=== PATIENT | male | born 1970 | race Caucasian/White ===

== ENCOUNTER → 2020-07-22 10:09 | Outpatient (CLI) | payer OTHER, SELFPAY ==
--- NOTE | ~2020-07-22 | MR_ITS ---
EXAMINATION: MR knee RT wo con DATE: 07/22/2020 10:57 INDICATION: Internal derangement of right knee. Right knee pain. TECHNIQUE: Magnetic resonance imaging (MRI) of the right knee was performed without intravenous contr ast. Sequences included axial PD-weighted FS FSE, coronal PD-weighted FSE and PD-weighted FS FSE, sag ittal PD-weighted FSE, and sagittal T2-weighted FS FSE. COMPARISON: None. FINDINGS: Medial compartment: There is a bucket-handle tear of medial meniscus displaced into the intercondylar notch. There is car tilage surface irregularity of tibial condyle and femoral condyle. Lateral compartment: Lateral meniscus is normal. Lateral compartment cartilage is normal. Patellofemoral compartment: There is deep partial thickness cartilage loss of patellar medial facet with mild subchondral edema-l tian marrow signal intensity. There is shallow partial-thickness cartilage loss of patellar lateral fa cet. There is cartilage surface irregularity of central trochlea. Ligaments and tendons: There is a complete tear of anterior cruciate ligament. Posterior cruciate ligament is intact. There is edema around medial collateral ligament, consistent with mild sprain. There is a mild sprain of fi bular collateral ligament characterized by thickening and increased signal intensity proximally. Ther e is mild patellar tendinopathy. Fluid: There is a large knee joint effusion. There is trace fluid in a Haddad's cyst. There is mild prepatell ar and superficial infrapatellar bursitis. Osseous/other: There is an impaction fracture of lateral tibial condyle posteriorly with low signal fracture line an d bone marrow edema. There is bone marrow edema-like marrow signal intensity in head of fibula, consi stent with contusion. There is a contusion of posterior aspect of medial tibial condyle with bone mar row edema-like marrow signal intensity. IMPRESSION: 1. Displaced bucket-handle tear of medial meniscus. 2. Complete tear of anterior cruciate ligament. 3. Moderate chondrosis of patellofemoral compartment and mild chondrosis of medial compartment. 4. Contusions of posterior tibia and fibular head with small impaction fracture of lateral tibial con dyle posteriorly. 5. Large knee joint effusion. Reviewed, dictated and finalized at location A. IMPRESSION: 1. Displaced bucket-handle tear of medial meniscus. 2. Complete tear of anterior cruciate ligament. 3. Moderate chondrosis of patellofemoral compartment and mild chondrosis of med ial compartment. 4. Contusions of posterior tibia and fibular head with small impaction fracture of lateral tibial condyle posteriorly. 5. Large knee joint effusion.
== END ==
DX: M23.8X1 Other internal derangements of right knee (principal); S83.211A Bucket-handle tear of medial meniscus, current injury, right knee, initial encounter; S83.511A Sprain of anterior cruciate ligament of right knee, initial encounter; M22.2X1 Patellofemoral disorders, right knee; S82.121A Displaced fracture of lateral condyle of right tibia, initial encounter for closed fracture; M25.461 Effusion, right knee; S80.11XA Contusion of right lower leg, initial encounter
CPT/HCPCS: 73721